=== PATIENT | female | born 1995 | race African-American/Black ===

== ENCOUNTER 2021-12-25 10:52 | Emergency (ER) | payer OTHER, SELFPAY ==
[2021-12-25 10:56] VITALS: BP 173/81; PULSE 114; RESP 18; TEMP 36.4; O2SAT 100
--- NOTE | 2021-12-25 13:34 | PC.NURSE ---
patient states she is leaving to go to another hospital because she waited too long to be seen
== END 2021-12-25 13:37 | disposition left against medical advice (07) ==
PROVIDERS: Emergency Provider Emergency Medicine
DX: R10.2 Pelvic and perineal pain (principal)
CPT/HCPCS: 99199